=== PATIENT | female | born 1955 | race African-American/Black ===

== ENCOUNTER 2016-12-31 08:52 | Emergency (ER) | payer OTHER ==
[~2016-12-31] VITALS: Ht 175.3 cm; Wt 95.0 kg
[2016-12-31 09:45] LABS: BASOPHILS % 1.1 % (0.0-2.0); EOSINOPHILS % 2.6 % (0.0-5.0); HEMATOCRIT. 38.1 % (36.0-48.0); HEMOGLOBIN. 12.8 g/dL (12.0-16.0); LYMPHOCYTES % 26.1 % (20.0-50.0); MEAN CORPUSCULAR HEMOGLOBIN 32.3 pg (28.0-32.0); MEAN PLATELET VOLUME 7.3 fl (7.4-10.4); MONOCYTES % 7.5 % (2.0-8.0); NEUTROPHILS % 62.7 % (40.0-76.0); PLATELET 300 x1000/uL (130-400); RED BLOOD CELL COUNT 3.96 mill/uL (4.2-5.4)
[2016-12-31 09:51] LABS: INR 0.9; PROTHROMBIN TIME 9.7 sec
[2016-12-31 10:00] LABS: CARBON DIOXIDE 28 mEq/L (21-32); CHLORIDE 104 mEq/L (98-107); TROPONIN I < 0.02 ng/mL (0.00-0.04)
[2016-12-31] MEDS ORDERED: FUROSEMIDE 40MG/4ML VIAL IVP ONE (10:30)
[2016-12-31] MEDS ORDERED: ASPIRIN 81MG TABLET PO ONE (10:30)
[2016-12-31 11:10] LABS: GLUCOSE URINE NEGATIVE (NEGATIVE); KETONES URINE NEGATIVE (NEGATIVE); LEUKOCYTE ESTERASE URINE NEGATIVE (NEGATIVE); NITRITE URINE NEGATIVE (NEGATIVE); OCCULT BLOOD URINE NEGATIVE (NEGATIVE); PROTEIN URINE 1+ (NEGATIVE); SPECIFIC GRAVITY URINE 1.008 (1.005-1.030); UROBILINOGEN URINE 0.2 E.U./dL (0.2-1.0)
[2016-12-31 11:11] LABS: CLARITY URINE SL HAZY (CLEAR); COLOR URINE YELLOW (YELLOW)
[2016-12-31 14:39] VITALS: BP 138/79
== END 2016-12-31 14:41 | disposition left against medical advice (07) ==
LOC: ER 10:24 → ENRESERV 16:07 → CANRESERV 16:07 → CANBEDREQ 18:01
DX: I13.0 Hypertensive heart and chronic kidney disease with heart failure and stage 1 through stage 4 chronic kidney disease, or unspecified chronic kidney disease (principal); N18.9 Chronic kidney disease, unspecified; N28.9 Disorder of kidney and ureter, unspecified; E78.00 Pure hypercholesterolemia, unspecified; Z85.3 Personal history of malignant neoplasm of breast; Z98.890 Other specified postprocedural states
CPT/HCPCS: 36415; 71010; 80053; 81001; 83605; 83880; 84443; 84484; 85025; 85610; 87040; 93005; 93970; 96374; 99285; J1940; Z7610